=== PATIENT | female | born 1985 | race Asian ===

== ENCOUNTER 2017-12-06 11:50 | Outpatient (CLI) | payer BC ==
[~2017-12-06] VITALS: Ht 154.9 cm; Wt 91.8 kg
[2017-12-06 11:30] VITALS: BP 127/78; PULSE 94; TEMP 98.1
[~2017-12-06 11:50] MED LIST: PRENATAL1 TA7 PO
[2017-12-06 15:00] VITALS: BP 117/76; PULSE 73
[2017-12-07] MEDS ORDERED: TYLENOL 325MG325 MG PO (00:40)
[2017-12-07] MEDS ORDERED: MOTRIN 800800 MG/TAB PO (08:05)
[2017-12-07] MEDS ORDERED: PERCOCET 325 MG1 TA2 PO (08:05)
== END 2017-12-06 15:40 | disposition home or self-care (01) ==
LOC: LDR 11:50 → LDRO 11:50
DX: O62.9 Abnormality of forces of labor, unspecified (principal); Z3A.40 40 weeks gestation of pregnancy
CPT/HCPCS: OP

== ENCOUNTER 2017-12-07 00:22 | Inpatient (IN) | payer BC ==
[2017-12-07] VITALS (46 sets, daily range): BP systolic 94–143; BP diastolic 52–90; PULSE 73–124; TEMP 98.3–98.9
[2017-12-07] MEDS ORDERED: TYLENOL 325MG325 MG PO (00:40)
[2017-12-07 01:10] LABS: BASO % 0.2 % (0.0-2.0); EOS # 0.1 (0.0-0.7); EOS % 0.5 % (0-4.0); GRAN # 10.5 (1.4-6.5); GRAN % 81.4 % (42.2-75.2); HEMATOCRIT 39.2 % (37.0-47.0); HEMOGLOBIN 13.9 g/dl (12.5-16.0); LYMPH # 1.4 (1.2-3.4); MEAN CELL VOLUME 88 fl (80.0-100.0); MEAN CORPUSCULAR HEMOGLOBIN 31 pg (27.0-31.0); MEAN CORPUSCULAR HGB CONC 36 g/dl (33.0-37.0); MEAN PLATELET VOLUME 11.2 fl (7.4-10.4); MONO # 0.8 (0.1-0.6); PLATELET COUNT 194 K/mm3 (130-400); RED BLOOD COUNT 4.48 M/mm3 (4.10-5.30); REDCELL DISTRIBUTION WIDTH-CV 13.2 % (11.5-14.5)
[2017-12-07] MEDS ORDERED: PERCOCET 325 MG1 TA2 PO (08:05)
[2017-12-07] MEDS ORDERED: MOTRIN 800800 MG/TAB PO (08:05)
[2017-12-07 10:56] LABS: MEAN CELL VOLUME 90 fl (80.0-100.0); MEAN CORPUSCULAR HGB CONC 35 g/dl (33.0-37.0); MEAN PLATELET VOLUME 11.1 fl (7.4-10.4); PLATELET COUNT 173 K/mm3 (130-400); RED BLOOD COUNT 3.57 M/mm3 (4.10-5.30); REDCELL DISTRIBUTION WIDTH-CV 13.4 % (11.5-14.5)
[2017-12-07 10:57] LABS: HEMATOCRIT 32.2 % (37.0-47.0); HEMOGLOBIN 11.1 g/dl (12.5-16.0); MEAN CORPUSCULAR HEMOGLOBIN 31 pg (27.0-31.0)
[2017-12-07 11:02] LABS: INR 0.9 (0.8-3.0); PROTHROMBIN TIME 10.4 SECONDS (9.7-12.8)
[2017-12-07 11:04] LABS: PARTIAL THROMBOPLASTIN TIME 25.8 SECONDS (26.0-37.0)
[2017-12-07 15:59] LABS: HEMOGLOBIN 10.6 g/dl (12.5-16.0); MEAN CELL VOLUME 88 fl (80.0-100.0); MEAN CORPUSCULAR HEMOGLOBIN 31 pg (27.0-31.0); MEAN CORPUSCULAR HGB CONC 35 g/dl (33.0-37.0); MEAN PLATELET VOLUME 11.1 fl (7.4-10.4); PLATELET COUNT 167 K/mm3 (130-400); RED BLOOD COUNT 3.41 M/mm3 (4.10-5.30); REDCELL DISTRIBUTION WIDTH-CV 13.2 % (11.5-14.5)
[2017-12-07 16:13] LABS: HEMATOCRIT 30.1 % (37.0-47.0)
[2017-12-07 16:28] LABS: ANISOCYTOSIS 1+; BAND 5 % (0-10); LYMPHOCYTE 7 % (20.0-51.0); NEUTROPHILS 88 % (42.0-75.2); PLATELET ESTIMATE NORMAL (NORMAL)
[2017-12-08 00:05] VITALS: BP 111/75; PULSE 111; TEMP 98.4
[2017-12-08 04:00] VITALS: BP 99/57; PULSE 87; TEMP 98.1
[2017-12-08 07:32] VITALS: BP 98/54; PULSE 91; TEMP 97.7
[2017-12-08 08:15] LABS: HEMATOCRIT 23.9 % (37.0-47.0); HEMOGLOBIN 8.3 g/dl (12.5-16.0); MEAN CELL VOLUME 90 fl (80.0-100.0); MEAN CORPUSCULAR HEMOGLOBIN 31 pg (27.0-31.0); MEAN CORPUSCULAR HGB CONC 35 g/dl (33.0-37.0); MEAN PLATELET VOLUME 11.2 fl (7.4-10.4); PLATELET COUNT 150 K/mm3 (130-400); RED BLOOD COUNT 2.65 M/mm3 (4.10-5.30); REDCELL DISTRIBUTION WIDTH-CV 13.4 % (11.5-14.5)
[2017-12-08 09:12] LABS: BAND 13 % (0-10); EOSINOPHIL 2 % (0-4); LYMPHOCYTE 35 % (20.0-51.0); METAMYELOCYTE 2 % (0-0); MYELOCYTE 1 % (0-0); NEUTROPHILS 47 % (42.0-75.2); PLATELET ESTIMATE NORMAL (NORMAL)
[2017-12-08 16:10] VITALS: BP 116/72; PULSE 99; TEMP 98.5
[2017-12-08 20:00] VITALS: BP 124/74; PULSE 100; TEMP 97.7
[2017-12-09 07:10] VITALS: BP 114/70; PULSE 101; TEMP 97.9
[2017-12-09 16:00] VITALS: BP 125/71; PULSE 105; TEMP 98.3
[2017-12-11 07:50] LABS: PATHOLOGY DIFF REVIEW OK +
== END 2017-12-09 17:35 | disposition home or self-care (01) | DRG 774 ==
LOC: LDRO 00:22 → LDR 00:49 → OB 17:35
PROVIDERS: Obstetrics & Gynecology
PROC: 10E0XZZ Delivery of Products of Conception, External Approach (ICD-10-PCS; principal; 2017-12-07)
PROC: 0KQM0ZZ Repair Perineum Muscle, Open Approach (ICD-10-PCS; 2017-12-07)
DX: O70.1 Second degree perineal laceration during delivery (principal); O72.1 Other immediate postpartum hemorrhage; Z37.0 Single live birth; Z3A.40 40 weeks gestation of pregnancy; O99.214 Obesity complicating childbirth
CPT/HCPCS: J0690; J2210; J2590; J2704; J2795; J3010; J7120